=== PATIENT | male | born 1980 | race American Indian/Alaskan Native ===

== ENCOUNTER 2020-12-03 14:25 | Emergency (ER) | payer OTHER ==
[~2020-12-03] VITALS: Ht 182.9 cm; Wt 122.5 kg
[2020-12-03 14:29] VITALS: BP 165/103
--- NOTE | 2020-12-03 14:32 | NUR ---
NO NEED NURSING INTERVENTIONS. SEEN BY & TREATED МАРИЯ MAURER.
[2020-12-03 14:33] VITALS: BP 146/79
[2020-12-03] MEDS ORDERED: OFLO5SOL27 LEFT EAR (14:33)
--- NOTE | 2020-12-03 14:38 | NUR ---
Patient discharged with v/s stable. Written and verbal after care instructions given and explained. Patient alert, oriented and verbalized understanding of instructions. Ambulatory with steady gait. All questions addressed prior to discharge. ID band removed. Patient advised to follow up with PMD. Rx of FLOXIN OT given. Patient educated on indication of medication including possible reaction and side effects. Opportunity to ask questions provided and answered.
== END 2020-12-03 14:38 | disposition home or self-care (01) ==
LOC: MED 14:25
DX: H60.92 Unspecified otitis externa, left ear (principal)
CPT/HCPCS: 99283